=== PATIENT | female | born 2000 | race African-American/Black ===

== ENCOUNTER 2018-04-27 21:19 | Inpatient (IN) ==
[2018-04-27 21:59] LABS: Apearance,Urine CLEAR (Clear); Bilirubin,Urine Negative (Negative); Blood, Urine Negative (Negative); Glucose,Urine (UA) Negative (Negative); Ketones,Urine Negative (Negative); Mucus,Urine Few /LPF (Occasional); Nitrite,Urine Negative (Negative); Protein,Urine 30 MG/DL; RBC,Urine 2 /HPF (0-4); Squamous Epithelial Cell,Urine Occasional /HPF (0-10); Urine Color Yellow (Yellow); Urine Specific Gravity 1.017 (1.001-1.035); WBC,Urine 8 /HPF (0-6)
[2018-04-27] MEDS ORDERED: LACTATED RINGERS 1,000 ML IV ONE (22:23)
[2018-04-27 22:36] LABS: Basophils % 0.2 % (0.0-0.8); Eosinophils # 0.1 10*3/uL (0.0-0.87); Eosinophils % 1.1 % (0.00-10.9); Hematocrit 31.9 VOL% (35.7-47.0); Hemoglobin 10.4 GM/DL (12.0-16.0); Immature Granulocytes % 0.2 %; Immature Granulocytes Absolute 0.02 #; Lymphocytes # 2.6 10*3/uL (1.4-4.0); Lymphocytes % 31.4 % (21.3-54.2); Mean Corpuscular HGB Conc 32.6 GM/DL (32-36); Mean Corpuscular Hemoglobin 26 PG (27-34); Mean Corpuscular Volume 78.6 FL (87-102); Mean Platelet Volume 11.5 FL (9.6-12.0); Monocytes # 0.7 10*3/uL (0.11-0.8); Neutrophils # 4.7 10*3/uL (1.4-7.4); Neutrophils % 58.1 % (38.7-73.9); Platelet Count 195 T/CUMM (130-400); Red Blood Count 4.06 MC/CUMM (3.8-5.5); Red Cell Distribution Width 13.2 % (9.3-17.3); White Blood Count 8.2 T/CUMM (4-12)
[2018-04-27 23:00] LABS: Alanine Aminotransferase 10 U/L (13-56); Albumin 2.7 G/DL (3.4-5.0); Alkaline Phosphatase 133 U/L (45-117); Aspartate Amino Transferase 14 U/L (0-37); Bilirubin,Total < 0.39 MG/DL (0.2-1.0); Blood Urea Nitrogen 5 MG/DL (7-18); Calcium 9.1 MG/DL (8.5-10.1); Glucose 84 MG/DL (74-106); Osmolality,Calculated 274.4 MOS/KG (273-304); Potassium 3.6 MMOL/L (3.5-5.1); Sodium 140 MMOL/L (136-145); Total Protein 7.5 G/DL (6.4-8.3); Uric Acid 5.4 MG/DL (2.6-6.0)
[2018-04-27 23:11] LABS: INR 0.9; Partial Thromboplastin Time 26.6 SECS (0-40)
[2018-04-27] MEDS ORDERED: MEPERIDINE 25 MG/1 ML VIAL IM ONE (23:28)
[2018-04-27] MEDS ORDERED: PROMETHAZINE 25 MG/1 ML VIAL IM ONE (23:28)
[2018-04-28] MEDS: LACTATED RINGERS 1,000 ML IV SCH ×2 (02:09→08:51)
[2018-04-28] MEDS ORDERED: NIFEdipine 10 MG CAPSULE ONE (09:26)
[2018-04-28] MEDS: NIFEdipine 10 MG CAPSULE PO SCH ×4 (09:30→23:27)
[2018-04-28] MEDS: BETAMETH SODIUM PHOS/ACETATE 30 MG/5 ML VIAL IM SCH (10:30)
[2018-04-28] MEDS ORDERED: ONDANSETRON 4 MG/2 ML VIAL IV PRN (15:54)
[2018-04-28 17:16] LABS: Barbiturates Screen,Urine Negative (Negative); Benzodiazepines Screen,Urine Negative (Negative); Cannabinoid Screen,Urine Negative (Negative); Opiate Screen,Urine Negative (Negative); Phencyclidine Screen,Urine Negative (Negative)
[2018-04-28] MEDS: ACETAMINOPHEN 500 MG TABLET PO PRN (21:03)
[2018-04-28] MEDS ORDERED: ZALEPLON 5 MG CAPSULE PO PRN (23:07)
[2018-04-29] MEDS: NIFEdipine 10 MG CAPSULE PO SCH ×5 (03:18→23:20)
[2018-04-29 07:01] LABS: Basophils % 0.1 % (0.0-0.8); Hematocrit 32.4 VOL% (35.7-47.0); Hemoglobin 10.4 GM/DL (12.0-16.0); Immature Granulocytes % 0.9 %; Immature Granulocytes Absolute 0.12 #; Lymphocytes # 1.6 10*3/uL (1.4-4.0); Lymphocytes % 11.7 % (21.3-54.2); Mean Corpuscular HGB Conc 32.1 GM/DL (32-36); Mean Corpuscular Hemoglobin 25 PG (27-34); Mean Corpuscular Volume 77.3 FL (87-102); Mean Platelet Volume 12.1 FL (9.6-12.0); Monocytes # 0.7 10*3/uL (0.11-0.8); NRBC # 0.03 10*3/uL; Neutrophils # 11.3 10*3/uL (1.4-7.4); Neutrophils % 82.3 % (38.7-73.9); Platelet Count 207 T/CUMM (130-400); Red Blood Count 4.19 MC/CUMM (3.8-5.5); Red Cell Distribution Width 13.2 % (9.3-17.3); White Blood Count 13.7 T/CUMM (4-12)
[2018-04-29 07:32] LABS: Alanine Aminotransferase 11 U/L (13-56); Albumin 2.7 G/DL (3.4-5.0); Alkaline Phosphatase 130 U/L (45-117); Aspartate Amino Transferase 15 U/L (0-37); Bilirubin,Total < 0.39 MG/DL (0.2-1.0); Blood Urea Nitrogen 4 MG/DL (7-18); Calcium 9.1 MG/DL (8.5-10.1); Glucose 117 MG/DL (74-106); Osmolality,Calculated 274.5 MOS/KG (273-304); Sodium 139 MMOL/L (136-145); Total Protein 7.3 G/DL (6.4-8.3)
[2018-04-29] MEDS: LACTATED RINGERS 1,000 ML IV SCH (08:27)
[2018-04-29] MEDS ORDERED: ACETAMINOPHEN/CODEINE 300-30 MG TABLET PO PRN (09:36)
[2018-04-29] MEDS: ACETAMINOPHEN/CODEINE 300-30 MG TABLET PO PRN (10:37)
[2018-04-29] MEDS: BETAMETH SODIUM PHOS/ACETATE 30 MG/5 ML VIAL IM SCH (10:39)
[2018-04-30] MEDS: ACETAMINOPHEN/CODEINE 300-30 MG TABLET PO PRN (00:12)
[2018-04-30] MEDS: NIFEdipine 10 MG CAPSULE PO SCH ×5 (00:15→22:29)
[2018-04-30] MEDS: BETAMETH SODIUM PHOS/ACETATE 30 MG/5 ML VIAL IM SCH (18:57)
[2018-04-30] MEDS: DOCUSATE SODIUM 100 MG CAPSULE PO SCH (21:28)
[2018-05-01] MEDS: DOCUSATE SODIUM 100 MG CAPSULE PO SCH ×2 (08:41→21:01)
[2018-05-01] MEDS: NIFEdipine 10 MG CAPSULE PO SCH ×4 (09:37→23:52)
[2018-05-01] MEDS: FAMOTIDINE 20 MG TABLET PO SCH ×2 (15:50→21:01)
[2018-05-01] MEDS ORDERED: NIFEdipine 10 MG CAPSULE PO SCH (16:00)
[2018-05-02] MEDS: ALUMINUM/MAGNES/SIMETH MAX STR 30 ML UDCUP PO PRN ×2 (00:16→20:39)
[2018-05-02] MEDS: NIFEdipine 10 MG CAPSULE PO SCH ×5 (04:07→20:39)
[2018-05-02] MEDS: FAMOTIDINE 20 MG TABLET PO SCH ×2 (09:00→20:39)
[2018-05-02] MEDS: DOCUSATE SODIUM 100 MG CAPSULE PO SCH ×2 (09:23→20:39)
[2018-05-02] MEDS: ACETAMINOPHEN/CODEINE 300-30 MG TABLET PO PRN (09:42)
[2018-05-02 10:57] LABS: Basophils % 0.1 % (0.0-0.8); Eosinophils # 0.1 10*3/uL (0.0-0.87); Eosinophils % 0.4 % (0.00-10.9); Hematocrit 32.9 VOL% (35.7-47.0); Hemoglobin 10.5 GM/DL (12.0-16.0); Immature Granulocytes % 0.7 %; Lymphocytes # 3.2 10*3/uL (1.4-4.0); Lymphocytes % 23.4 % (21.3-54.2); Mean Corpuscular HGB Conc 31.9 GM/DL (32-36); Mean Corpuscular Hemoglobin 25 PG (27-34); Mean Corpuscular Volume 77.2 FL (87-102); Monocytes # 1.4 10*3/uL (0.11-0.8); Monocytes % 10.3 % (1.7-12.7); NRBC # 0.22 10*3/uL; Neutrophils # 8.8 10*3/uL (1.4-7.4); Neutrophils % 65.1 % (38.7-73.9); Platelet Count 209 T/CUMM (130-400); Red Blood Count 4.26 MC/CUMM (3.8-5.5); Red Cell Distribution Width 13.2 % (9.3-17.3); White Blood Count 13.5 T/CUMM (4-12)
[2018-05-02 11:13] LABS: INR 0.9; Partial Thromboplastin Time 26.4 SECS (0-40)
[2018-05-02 11:22] LABS: Alanine Aminotransferase 28 U/L (13-56); Albumin 2.6 G/DL (3.4-5.0); Alkaline Phosphatase 128 U/L (45-117); Aspartate Amino Transferase 25 U/L (0-37); Bilirubin,Total < 0.39 MG/DL (0.2-1.0); Blood Urea Nitrogen 4 MG/DL (7-18); Glucose 105 MG/DL (74-106); Osmolality,Calculated 271.7 MOS/KG (273-304); Potassium 3.7 MMOL/L (3.5-5.1); Sodium 138 MMOL/L (136-145); Total Protein 7.1 G/DL (6.4-8.3)
[2018-05-02] MEDS: LACTATED RINGERS 1,000 ML IV SCH ×2 (12:00→19:57)
[2018-05-02] MEDS ORDERED: hydrALAZINE 20 MG/1 ML VIAL ONE (12:38)
[2018-05-02] MEDS: hydrALAZINE 20 MG/1 ML VIAL IV SCH ×2 (12:42→19:23)
[2018-05-03] MEDS: hydrALAZINE 20 MG/1 ML VIAL IV SCH ×3 (01:20→14:11)
[2018-05-03] MEDS: NIFEdipine 10 MG CAPSULE PO SCH ×5 (03:25→19:40)
[2018-05-03] MEDS: LACTATED RINGERS 1,000 ML IV SCH ×2 (05:14→14:11)
[2018-05-03 07:54] LABS: Basophils % 0.2 % (0.0-0.8); Eosinophils # 0.1 10*3/uL (0.0-0.87); Eosinophils % 0.6 % (0.00-10.9); Hematocrit 30.7 VOL% (35.7-47.0); Immature Granulocytes % 0.5 %; Immature Granulocytes Absolute 0.06 #; Lymphocytes # 3.5 10*3/uL (1.4-4.0); Mean Corpuscular HGB Conc 32.6 GM/DL (32-36); Mean Corpuscular Hemoglobin 25 PG (27-34); Mean Corpuscular Volume 77.1 FL (87-102); Mean Platelet Volume 11.5 FL (9.6-12.0); Monocytes # 1.1 10*3/uL (0.11-0.8); Monocytes % 9.8 % (1.7-12.7); NRBC # 0.11 10*3/uL; Neutrophils # 6.6 10*3/uL (1.4-7.4); Neutrophils % 57.9 % (38.7-73.9); Platelet Count 179 T/CUMM (130-400); Red Blood Count 3.98 MC/CUMM (3.8-5.5); Red Cell Distribution Width 13.3 % (9.3-17.3); White Blood Count 11.4 T/CUMM (4-12)
[2018-05-03 08:01] LABS: INR 0.9; PT Patient Result 9.8 SECS; Partial Thromboplastin Time 28.9 SECS (0-40)
[2018-05-03] MEDS: DOCUSATE SODIUM 100 MG CAPSULE PO SCH ×2 (08:24→22:40)
[2018-05-03] MEDS: FAMOTIDINE 20 MG TABLET PO SCH (08:24)
[2018-05-03 08:25] LABS: Alanine Aminotransferase 21 U/L (13-56); Albumin 2.3 G/DL (3.4-5.0); Alkaline Phosphatase 123 U/L (45-117); Aspartate Amino Transferase 18 U/L (0-37); Bilirubin,Total < 0.39 MG/DL (0.2-1.0); Blood Urea Nitrogen 4 MG/DL (7-18); Calcium 8.6 MG/DL (8.5-10.1); Glucose 126 MG/DL (74-106); Osmolality,Calculated 275.5 MOS/KG (273-304); Potassium 3.8 MMOL/L (3.5-5.1); Sodium 139 MMOL/L (136-145); Total Protein 6.5 G/DL (6.4-8.3); Uric Acid 4.7 MG/DL (2.6-6.0)
[2018-05-03] MEDS: hydrALAZINE 10 MG TABLET PO SCH ×2 (16:15→22:40)
[2018-05-03] MEDS: ACETAMINOPHEN 500 MG TABLET PO PRN (16:25)
[2018-05-04] MEDS: NIFEdipine 10 MG CAPSULE PO SCH ×4 (00:08→10:14)
[2018-05-04] MEDS: hydrALAZINE 10 MG TABLET PO SCH ×2 (04:20→10:13)
[2018-05-04] MEDS: DOCUSATE SODIUM 100 MG CAPSULE PO SCH (09:19)
[2018-05-04] MEDS: FAMOTIDINE 20 MG TABLET PO SCH ×2 (09:19→09:20)
[2018-05-04 11:43] VITALS: BP 142/88
== END 2018-05-04 15:38 | disposition home or self-care (01) | DRG 563 ==
LOC: N.LD 21:19 → N.LDOUT 21:19 → N.LD 21:20
PROVIDERS: ADMIT Obstetrics & Gynecology; ATTEND Obstetrics & Gynecology

== ENCOUNTER 2018-06-05 15:47 | Inpatient (IN) ==
[2018-06-08 07:09] VITALS: BP 134/87
== END 2018-06-08 12:00 | disposition home or self-care (01) | DRG 540 ==
LOC: N.LDOUT 15:47 → N.LD 15:49 → N.OB 06-06 15:19
PROVIDERS: ADMIT Obstetrics & Gynecology; ATTEND Obstetrics & Gynecology
PROC: LDCSECT (ICD-10-PCS; 2018-06-05 20:55)

== ENCOUNTER 2021-03-03 21:27 | Inpatient (IN) ==
[2021-03-03 21:59] LABS: Bilirubin,Urine Negative (Negative); Blood, Urine Negative (Negative); Glucose,Urine (UA) Negative (Negative); Ketones,Urine 5 mg/dL (Negative); Mucus,Urine Occasional /LPF (Occasional); Nitrite,Urine Negative (Negative); Protein,Urine 100 MG/DL; RBC,Urine 4 /HPF (0-4); Squamous Epithelial Cell,Urine Occasional /HPF (0-10); Urine Appearance Slightly Hazy (Clear); Urine Color Yellow (Yellow); Urine Specific Gravity 1.018 (1.001-1.035); Urine Urobilinogen < 2.0 EU/DL (0.2-1.0); WBC,Urine 18 /HPF (0-6)
[2021-03-03] MEDS ORDERED: ONDANSETRON 4 MG/2 ML VIAL IV PRN (22:56)
[2021-03-03] MEDS ORDERED: BUTORPHANOL 1 MG/ML VIAL IV PRN (22:56)
[2021-03-03] MEDS: LACTATED RINGERS 1,000 ML IV SCH (23:28)
[2021-03-03] MEDS: BETAMETH SODIUM PHOS/ACETATE 30 MG/5 ML VIAL IM SCH (23:32)
[2021-03-04 01:31] LABS: Basophils % 0.3 % (0.0-0.8); Eosinophils # 0.2 10*3/uL (0.0-0.87); Eosinophils % 1.7 % (0.00-10.9); Hematocrit 34.8 VOL% (35.7-47.0); Hemoglobin 10.9 GM/DL (12.0-16.0); Immature Granulocytes % 0.3 %; Immature Granulocytes Absolute 0.03 #; Lymphocytes # 1.8 10*3/uL (1.4-4.0); Lymphocytes % 18.6 % (21.3-54.2); Mean Corpuscular HGB Conc 31.3 GM/DL (32-36); Mean Corpuscular Volume 82.3 FL (87-102); Mean Platelet Volume 10.7 FL (9.6-12.0); Neutrophils % 73.1 % (38.7-73.9); Platelet Count 186 T/CUMM (130-400); Red Blood Count 4.23 MC/CUMM (3.8-5.5); Red Cell Distribution Width 13.9 % (9.3-17.3); White Blood Count 9.7 T/CUMM (4-12)
[2021-03-04 01:50] LABS: PT Patient Result 10.3 SECS (9.8-11.9); Partial Thromboplastin Time 28.8 SECS (23.9-33.8)
[2021-03-04 01:51] LABS: Alanine Aminotransferase 11 U/L (13-56); Albumin 2.9 G/DL (3.4-5.0); Alkaline Phosphatase 152 U/L (45-117); Aspartate Amino Transferase 17 U/L (0-37); Bilirubin,Direct < 0.050 MG/DL (0.0-0.20); Bilirubin,Total < 0.39 MG/DL (0.2-1.0); Blood Urea Nitrogen 5 MG/DL (7-18); Calcium 8.9 MG/DL (8.5-10.1); Carbon Dioxide 22 MMOL/L (21-32); Estimated Glom Filtration Rate 135 ML/MIN; Glucose 97 MG/DL (74-106); Osmolality,Calculated 269.8 MOS/KG (273-304); Sodium 137 MMOL/L (136-145); Total Protein 7.3 G/DL (6.4-8.2); Uric Acid 5.6 MG/DL (2.6-6.0)
[2021-03-04] MEDS ORDERED: CITRIC ACID/SODIUM CITRATE 30 ML UDCUP PO ONE ×2 (02:06→06:00)
[2021-03-04] MEDS ORDERED: FAMOTIDINE 20 MG/2 ML VIAL IV ONE ×2 (02:06→06:00)
[2021-03-04] MEDS ORDERED: ceFAZolin 2,000 MG in PREMIX 1 EACH IV ONE ×2 (02:06→07:00)
[2021-03-04] MEDS ORDERED: MAGNESIUM SULF RIDER 100 ML IV ONE (02:10)
[2021-03-04] MEDS ORDERED: LIDOCAINE 1% 50 ML VIAL ONE (02:23)
[2021-03-04] MEDS ORDERED: LACTATED RINGERS 1,000 ML IV SCH ×2 (02:30→09:00)
[2021-03-04] MEDS ORDERED: MAGNESIUM SULF DRIP 40 GM/1,000 ML ML IV SCH (02:30)
[2021-03-04 02:54] LABS: Bacteria,Urine Occasional /HPF (Few); Bilirubin,Urine Negative (Negative); Blood, Urine Negative (Negative); Glucose,Urine (UA) Negative (Negative); Ketones,Urine Negative (Negative); Nitrite,Urine Negative (Negative); Protein,Urine Negative; RBC,Urine <1 /HPF (0-4); Renal Epithelial Cells,Urine Occasional /HPF (<1); Squamous Epithelial Cell,Urine Occasional /HPF (0-10); Urine Appearance CLEAR (Clear); Urine Color Colorless (Yellow); Urine Specific Gravity 1.002 (1.001-1.035); Urine Urobilinogen < 2.0 EU/DL (0.2-1.0); WBC,Urine 2 /HPF (0-6)
[2021-03-04] MEDS: LACTATED RINGERS 1,000 ML IV SCH ×2 (02:58→17:05)
[2021-03-04] MEDS ORDERED: miSOPROStoL 200 MCG TABLET ONE (05:59)
[2021-03-04] MEDS ORDERED: TRANEXAMIC ACID 1,000 MG/10 ML VIAL ONE (05:59)
[2021-03-04] MEDS ORDERED: OXYTOCIN/LR 20 UNIT/1,000 ML BAG IV ONE ×2 (05:59→08:47)
[2021-03-04] MEDS ORDERED: METHYLERGONOVINE 0.2 MG/1 ML AMP ONE (06:00)
[2021-03-04] MEDS ORDERED: CARBOPROST TROMETHAMINE 250 MCG/ML AMP IM ONE (06:00)
[2021-03-04] MEDS ORDERED: MORPHINE 10 MG/10 ML VIAL ONE (06:21)
[2021-03-04] MEDS ORDERED: ONDANSETRON 4 MG/2 ML VIAL ONE (06:21)
[2021-03-04] MEDS ORDERED: BUPIVACAINE SPINAL 0.75% 2 ML AMP SPINAL ONE (06:21)
[2021-03-04] MEDS ORDERED: DEXAMETHASONE 4 MG/1 ML VIAL ONE (07:36)
[2021-03-04] MEDS ORDERED: ROPIVACAINE 0.5% 30 ML VIAL ONE (07:36)
[2021-03-04] MEDS ORDERED: fentaNYL 100 MCG/2 ML VIAL ONE (07:57)
[2021-03-04] MEDS ORDERED: PHENYLEPHRINE 1 MG/10 ML SYRINGE IV ONE ×2 (07:58→08:00)
[2021-03-04 08:02] LABS: Cord Arterial Blood HCO3 20.1 MMOL/L
[2021-03-04 08:03] LABS: Cord Venous Blood PCO2 56.9 MMHG
[2021-03-04 08:04] LABS: Cord Venous Blood PO2 14.2 MMHG
[2021-03-04] MEDS ORDERED: propofoL 200 MG/20 ML VIAL IV ONE (08:06)
[2021-03-04] MEDS ORDERED: RHO(D) IMMUNE GLOBULIN 300 MCG SYRINGE IM ONE (08:47)
[2021-03-04] MEDS ORDERED: SIMETHICONE CHEW 80 MG TABLET PO PRN (08:47)
[2021-03-04] MEDS ORDERED: ONDANSETRON 4 MG/2 ML VIAL IV PRN (08:47)
[2021-03-04] MEDS ORDERED: ACETAMINOPHEN 325 MG TABLET PO PRN (08:47)
[2021-03-04] MEDS ORDERED: IBUPROFEN 800 MG TABLET PO PRN (08:47)
[2021-03-04] MEDS ORDERED: oxyCODONE/ACETAMINOPHEN 5-325 MG TABLET PO PRN (08:48)
[2021-03-04] MEDS: KETOROLAC 30 MG/1 ML VIAL IV SCH ×3 (08:59→21:20)
[2021-03-04] MEDS ORDERED: ACETAMINOPHEN 500 MG TABLET PO PRN (09:00)
[2021-03-04] MEDS: ceFAZolin 1,000 MG in SYRINGE 1 EACH IV SCH (14:57)
[2021-03-04] MEDS: BETAMETH SODIUM PHOS/ACETATE 30 MG/5 ML VIAL IM SCH (15:03)
[2021-03-04 20:17] LABS: Basophils % 0.1 % (0.0-0.8); Hematocrit 33.7 VOL% (35.7-47.0); Hemoglobin 10.4 GM/DL (12.0-16.0); Immature Granulocytes % 0.5 %; Lymphocytes # 1.5 10*3/uL (1.4-4.0); Lymphocytes % 7.1 % (21.3-54.2); Mean Corpuscular HGB Conc 30.9 GM/DL (32-36); Mean Platelet Volume 10.4 FL (9.6-12.0); Neutrophils % 85.3 % (38.7-73.9); Platelet Count 208 T/CUMM (130-400); Red Blood Count 4.06 MC/CUMM (3.8-5.5); Red Cell Distribution Width 13.8 % (9.3-17.3); White Blood Count 21.8 T/CUMM (4-12)
[2021-03-04 21:03] LABS: Lymphocytes 11 % (20-55); Segmented Neutrophils 88 % (50-85); Total Cells Counted 100
[2021-03-05] MEDS: DOCUSATE SODIUM 100 MG CAPSULE PO SCH ×3 (00:28→22:51)
[2021-03-05] MEDS: ceFAZolin 1,000 MG in SYRINGE 1 EACH IV SCH (00:28)
[2021-03-05] MEDS: KETOROLAC 30 MG/1 ML VIAL IV SCH (05:02)
[2021-03-05 05:38] LABS: Basophils % 0.1 % (0.0-0.8); Eosinophils % 0.1 % (0.00-10.9); Hematocrit 29.6 VOL% (35.7-47.0); Hemoglobin 9.8 GM/DL (12.0-16.0); Immature Granulocytes % 0.7 %; Immature Granulocytes Absolute 0.12 #; Lymphocytes # 1.9 10*3/uL (1.4-4.0); Lymphocytes % 10.3 % (21.3-54.2); Mean Corpuscular HGB Conc 33.1 GM/DL (32-36); Mean Corpuscular Volume 80.7 FL (87-102); Mean Platelet Volume 10.7 FL (9.6-12.0); Monocytes % 6.9 % (1.7-12.7); Neutrophils % 81.9 % (38.7-73.9); Platelet Count 175 T/CUMM (130-400); Red Blood Count 3.67 MC/CUMM (3.8-5.5); Red Cell Distribution Width 13.8 % (9.3-17.3); White Blood Count 18.1 T/CUMM (4-12)
[2021-03-05] MEDS: MULTIVITAMIN (PRENATAL) TABLET PO SCH (09:53)
[2021-03-05] MEDS: FERROUS SULFATE 325 MG TABLET PO SCH ×2 (09:53→22:51)
[2021-03-05] MEDS: MAGNESIUM HYDROXIDE SUSP 30 ML UDCUP PO PRN ×2 (09:58→22:52)
[2021-03-06 07:23] VITALS: BP 134/85
[2021-03-06] MEDS: MAGNESIUM HYDROXIDE SUSP 30 ML UDCUP PO PRN (08:26)
[2021-03-06] MEDS: FERROUS SULFATE 325 MG TABLET PO SCH (08:26)
[2021-03-06] MEDS: MULTIVITAMIN (PRENATAL) TABLET PO SCH (08:31)
== END 2021-03-06 11:30 | disposition home or self-care (01) | DRG 540 ==
LOC: N.LDOUT 21:27 → N.LD 23:13 → N.OB 03-04 11:44
PROVIDERS: ADMIT Obstetrics & Gynecology; ATTEND Obstetrics & Gynecology